=== PATIENT | male | born 1980 | race Caucasian/White ===

== ENCOUNTER 2020-03-19 11:07 | Emergency (ER) | payer BC, SELFPAY ==
[2020-03-19 11:18] VITALS: BP 130/83; PULSE 57; RESP 16; TEMP 36.7; O2SAT 100
--- NOTE | 2020-03-19 11:39 | ED.GENADULT ---
HPI - General Adult General Chief complaint: Skin/Abscess/Foreign Body Stated complaint: Right leg swelling Time Seen by Provider: 03/19/20 11:39 Source: patient and RN notes reviewed Mode of arrival: ambulatory Limitations: no limitations History of Present Illness HPI narrative: 39-year-old male presents with complaints of redness, warmth, tenderness, and swelling to right ankle for the past 4 days. No treatment. Denies radiation of tenderness, redness, or swelling. Exacerbating factor consist of ambulation. Denies calf pain. Denies open areas or drainage. Denies fever or chills. Denies nausea, vomiting, and abdominal pain. Tolerating po intake well. The patient reports he have not been diagnosed with COVID-19. The patient reports he is not waiting for the results of a COVID-19 lab test. The patient reports he do not have fever, chills, weakness, fatigue, or myalgia. The patient reports he do not have a new or worsening cough or shortness of breath. Denies chest pain. The patient reports he do not have any rhinorrhea, congestion, sore throat, loss of taste, and diarrhea. Denies recent traveling. Denies concerns for COVID-19 or exposures been home with limited outdoor exposure except for essential household needs, work, and return home. At this time, patient is not suspected of having COVID-19. Some parts of this dictation were generated by voice recognition software and may contain typographical and/or grammatical inaccuracies. Related Data Home Medications Medication Instructions Recorded Confirmed lamivudine-tenofovir disop fum 1 tablet PO DAILY 03/19/20 03/19/20 [Cimduo] raltegravir [Isentress HD] 1,200 mg PO BID 03/19/20 03/19/20 Allergies Allergy/AdvReac Type Severity Reaction Status Date / Time Sulfa (Sulfonamide Allergy Unknown Rash Verified 03/19/20 11:24 Antibiotics) Review of Systems Review of Systems: Narrative: CONSTITUTIONAL: Denies fever, chills, sweats. EYES: Denies visual changes, redness, discharge. ENT: Denies rhinorrhea, congestion, sore throat, otalgia. CARDIOVASCULAR: Denies chest pain, palpitations, edema. RESPIRATORY: Denies dyspnea, wheezing, cough. GASTROINTESTINAL: Denies abdominal pain, nausea, vomiting, diarrhea. GENITOURINARY: Denies dysuria, hematuria, abnormal discharge. SKIN: Complains of redness, swelling, warmth, and tenderness to RT ankle. MUSCULOSKELETAL: Denies acute back pain, joint pain, or myalgia. NEUROLOGIC: Denies numbness or focal weakness. PSYCHIATRIC: Denies anxiety or depression. All systems reviewed & are unremarkable except as noted in HPI and below. [facility] Past Medical History Medical History (Updated 03/20/20 @ 00:00 by Hedy Reed) HIV positive Surgical History Surgical History (Updated 03/19/20 @ 11:48 by SHAHRAM Madrigal) No significant past surgical history Family History Family History (Updated 03/19/20 @ 11:49 by SHAHRAM Madrigal) Mother Family history of thyroid disease, Onset Age: 71 Diabetes mellitus, Onset Age: 71 Family history of arthritis, Onset Age: 71 Father , Father was murdered when Lokesh was 12 years old Unknown family medical history Social History Social History (Updated 03/19/20 @ 11:50 by SHAHRAM Madrigal) Smoking status: Never smoker Tobacco type: cigarettes Second hand tobacco smoke exposure: No Alcohol intake: current Substance use: never Living arrangements: with family Occupation/Education: occupation Gender identity (if verbalized by the patient): Male Comments At time of signature, agree with nurse past medical, surgical, social, and family history. There is no relevant family history pertinent to the presenting complaint. Exam Narrative: Exam Narrative: GENERAL: This is a well-nourished, well-developed patient, in no apparent distress. HEAD: normocephalic, atraumatic. EYES: PERRL. Sclera clear/white. Vision is grossl
== END 2020-03-19 11:58 | disposition home or self-care (01) ==
PROVIDERS: Emergency Provider Nurse Practitioner Family; PCP Family Medicine
DX: L03.115 Cellulitis of right lower limb (principal); Z21 Asymptomatic human immunodeficiency virus [HIV] infection status
CPT/HCPCS: 99213; G0463

== ENCOUNTER 2021-11-15 10:15 | Emergency (ER) | payer BC, SELFPAY ==
--- NOTE | ~2021-11-15 | XR_ITS ---
EXAMINATION: XR chest 1V portable DATE: 11/15/2021 10:52 INDICATION: Muscle stiffness. TECHNIQUE: A single frontal view of the chest was obtained. COMPARISON: Chest 2 views 12/23/2018 FINDINGS: The chest demonstrates clear lungs without pneumonia, pleural effusion, or pneumothorax. Th e heart size is normal. Again seen are changes of old right acromioclavicular separation. IMPRESSION: 1. No acute cardiopulmonary disease. Reviewed, dictated and finalized at location A.
[2021-11-15 10:18] VITALS: BP 138/101; PULSE 88; RESP 18; TEMP 36.8; O2SAT 100
[2021-11-15 10:26] VITALS: BP 153/96; PULSE 68; RESP 20; TEMP 36.9; O2SAT 100
--- NOTE | 2021-11-15 10:42 | ED.GENADULT ---
HPI - General Adult General Chief complaint: Unspecified Stated complaint: muscle stiffness - concern for tetanus Time Seen by Provider: 11/15/21 10:37 Source: patient Mode of arrival: ambulatory Limitations: no limitations History of Present Illness HPI narrative: Patient is 40 years old white male referred to our emergency room from his family physician office because of possible tetanus. Patient injured right thumb while opening a soda can 1-1/2-week ago, over the last 5 days patient gradually getting stiffness of the wrist bilaterally, lower extremity bilaterally mainly at the thigh muscles, also of the back. Patient have trouble to right or to use his fingers, poor fine skills. Patient reported running temperature of 99.6 lately. History of HIV, on medication right now, no new medicine over the last 2 years, his infectious disease doctor has retired and currently have no white. Patient denies any nausea, vomiting, abdominal pain, urinary symptoms, chest pain, shortness of breath, difficulty swallowing or opening his mouth. Patient reports not feeling stiff while laying down in bed or sitting up. Only when he does try to stand up or walk. Related Data Home Medications Medication Instructions Recorded Confirmed raltegravir [Isentress HD] 1,200 mg PO BID 03/19/20 11/15/21 Allergies Allergy/AdvReac Type Severity Reaction Status Date / Time Sulfa (Sulfonamide Allergy Unknown Rash Verified 11/15/21 09:31 Antibiotics) Review of Systems Review of Systems: All systems reviewed & are unremarkable except as noted in HPI and below PMFSH Past Medical History Medical History HIV positive Surgical History Surgical History No significant past surgical history Family History Family History Mother Family history of thyroid disease, Onset Age: 71 Diabetes mellitus, Onset Age: 71 Family history of arthritis, Onset Age: 71 Father , Father was murdered when Lokesh was 12 years old Unknown family medical history Social History Social History Social History: Life Partner Smoking status: Never smoker Tobacco type: cigarettes Second hand tobacco smoke exposure: No Alcohol intake: current Alcohol use details: Occasionally Substance use: never Substance use type: does not use Gender identity (if verbalized by the patient): Male Sexual Orientation (if Verbalized by the Patient): Lesbian, [place], or Homosexual Exam Narrative: General appearance: Well-developed, well-nourished Skin: Normal color Head: Normocephalic, nontraumatic Eyes: Clear conjunctiva ENT: Oropharynx normal, ears normal, nose normal, negative spatulate test Neck: Supple, nontender Chest and respiratory: Airway patent, no respiratory distress, no accessory muscle use Heart: Regular rate/rhythm Abdomen: Soft, nontender, no organomegaly, quiet bowel sounds Vascular: Normal peripheral pulses, normal capillary refill. Musculoskeletal: Normal range of motion, nontender back Neurologic: Alert and oriented ?3, SHIP JOINER is normal as tested, no gross motor deficit Course Course Emergency Course: Stable Consultations Consultation #1: Dr. Massey, hospitalist at [facility] who accepted patient transfer, waiting for a bed Date: 11/15/21 Time: 11:36 Vital Signs Vital signs: Vital Signs Temperature 36.8 C 11/15/21 10:18 Pulse Rate 88 11/15/21 10:18 Respiratory Rate 18 11/15/21 10:18 Blood Pressure 138/101 H 04
[2021-11-15 10:51] LABS: Basophils Percent Auto 0.4 % (0.2-1.2); Eosinophils Percent Auto 0.4 % (0-4.4); Hematocrit 46.2 % (42.0-52.0); Hemoglobin 15.3 g/dL (14.0-18.0); Immature Granulocyte Absolute 0.03 K/mm3 (0.00-0.031); Immature Granulocyte Percent A 0.4 % (0-0.5); Lymphocytes Absolute Auto 1.78 K/mm3 (0.9-3.2); Lymphocytes Percent Auto 24.9 % (18.3-44.2); Mean Corpuscular HGB Conc 33.1 g/dl (32-36); Mean Corpuscular Hemoglobin 32.8 pg (26-34); Mean Corpuscular Volume 99.1 fl (80-100); Mean Platelet Volume 11.1 fl (7.4-10.4); Monocytes Absolute Auto 0.8 K/mm3 (0.1-0.6); Monocytes Percent Auto 10.8 % (2.6-8.5); Neutrophils Absolute Auto 4.5 K/mm3 (1.3-6.7); Neutrophils Percent Auto 63.1 % (45.5-73.1); Platelet Count Result 246 k/mm3 (150-375); Red Blood Count 4.66 M/mm3 (4.6-6.20); Red Cell Distribution Width 12.9 % (11.5-14.5); White Blood Count 7.2 K/mm3 (4.5-10.0)
[2021-11-15 10:54] LABS: Appearance Urine Clear (Clear); Bilirubin Urine Negative (Negative); Blood Urine Trace-lysed (Negative); Color Urine Yellow (Yellow); Glucose Urine UA Negative (Negative); Ketones Urine Negative (Negative); Leukocyte Esterase Ur Negative LEU/UL (Negative); Nitrate Urine Negative (Negative); Protein Urine Trace mg/dL (Negative); Specific Grav Ur >= 1.030 (1.001-1.035); Urobilinogen Urine 0.2 mg/dL (<2.0)
[2021-11-15 11:01] LABS: Mucus Urine Rare /lpf; RBC Urine 0-2 /hpf (0-2); WBC Urine 0-3 /hpf
[2021-11-15 11:03] LABS: Add Urine Microscopic? YES; Alanine Aminotransferase 28 U/L (4-50); Alkaline Phosphatase 76 U/L (38-126); Anion Gap 7 mmol/L (8-16); Aspartate Amino Transferase 50 U/L (17-59); Bilirubin,Total 0.4 mg/dL (0.2-1.3); Blood Urea Nitrogen 17 mg/dL (9-20); CRP 1.8 mg/dL (<1.0); Calcium 8.8 mg/dL (8.4-10.2); Carbon Dioxide 25 mmol/L (22-30); Chloride 106 mmol/L (98-107); Creatine Kinase 503 U/L (55-170); Estimated CRCL calculation 90 ml/min; Estimated Glomerular Filt Rate > 60; Glucose 113 mg/dL (65-110); Potassium 4.2 mmol/L (3.4-5.0); Sodium 138 mmol/L (137-145)
[2021-11-15 11:11] LABS: Amphetamine Screen Urine Negative (Negative); Barbiturate Screen Urine Negative (Negative); Benzodiazepines Screen Urine Negative (Negative); Cannabinoid Screen Urine Negative (Negative); Cocaine Screen Urine Negative (Negative); Methadone Screen Urine Negative (Negative); Opiate Screen Urine Negative (Negative); Phencyclidine Screen Urine Negative (Negative)
[2021-11-15] MEDS: SODIUM CHLORIDE 0.9% IV 1,000 ML 999 ML IV CONT (11:45)
[2021-11-15 11:46] VITALS: BP 137/81; PULSE 58; RESP 20; O2SAT 100
[2021-11-15 11:48] VITALS: PULSE 57
[2021-11-15 11:48] LABS: Erythrocyte Sedimentation Rate 14 mm/hr (0-20)
[2021-11-15 14:37] VITALS: BP 134/84; PULSE 66; RESP 16; O2SAT 100
[2021-11-15 15:57] VITALS: BP 141/80; PULSE 63; RESP 16; O2SAT 100
== END 2021-11-15 15:42 | disposition short-term general hospital (02) ==
PROVIDERS: Emergency Provider Emergency Medicine; PCP Family Medicine
DX: M25.69 Stiffness of other specified joint, not elsewhere classified (principal); M62.82 Rhabdomyolysis; Z21 Asymptomatic human immunodeficiency virus [HIV] infection status
CPT/HCPCS: 36415; 71045; 80053; 80307; 81001; 82550; 85025; 85652; 86140; 96360; 99285; J7030